=== PATIENT | female | born 1995 | race Caucasian/White ===

== ENCOUNTER 2017-04-08 07:43 | Emergency (ER) | payer OTHER ==
[~2017-04-08] VITALS: Ht 167.6 cm; Wt 56.7 kg
[~2017-04-08 07:43] MED LIST: RITALIN LA40 MG
[2017-04-08 07:57] VITALS: BP 135/90
[2017-04-08 08:36] LABS: URINE BILIRUBIN NEGATIVE (Negative); URINE BLOOD TRACE (Negative); URINE CLARITY SL CLOUDY; URINE COLOR YELLOW; URINE GLUCOSE-RANDOM NEGATIVE (Negative); URINE KETONES NEGATIVE (Negative); URINE LEUKOCYTES-REFLEX 1+ (Negative); URINE NITRITE-REFLEX NEGATIVE (Negative); URINE PROTEIN NEGATIVE (Negative); URINE SPECIFIC GRAVITY <= 1.005 (1.005-1.030); URINE UROBILINOGEN 0.2 E.U./dl (0.2-1.0)
[2017-04-08 08:38] LABS: ABSOLUTE EOSINOPHILS 0.1 thou/uL (0.0-0.7); ABSOLUTE LYMPHOCYTES 1.7 thou/uL (0.8-5.3); ABSOLUTE MONOCYTES 0.7 thou/uL (0.0-1.2); ABSOLUTE NEUTROPHILS 4.5 thou/uL (1.6-8.1); BASOPHILS 0.3 %; EOSINOPHILS 1.2 %; HEMATOCRIT 38.2 % (37.0-47.0); HEMOGLOBIN 13.1 gm/dL (12.0-15.0); LYMPHOCYTES 23.8 %; MCH 29.2 pg (26.0-34.0); MCHC 34.3 g/dL (28.0-37.0); MCV 85.2 fL (80.0-100.0); MONOCYTES 10.1 %; MPV 7.9 fl. (7.2-11.1); NUCLEATED RBCS 0 /100WBC; PLATELET COUNT* 236 thou/uL (150-400); POLYS 64.6 %; RBC 4.49 mil/uL (4.20-5.00); RDW-CV 14.3 % (10.5-14.5); WBC 6.9 thou/uL (4.0-11.0)
[2017-04-08 08:46] LABS: BACTERIA-REFLEX >30 Many /HPF (None Seen); SQUAMOUS >10 Many /LPF (0-3)
[2017-04-08 08:47] LABS: CASTS None Seen /LPF (None Seen); CRYSTALS None Seen /LPF (None Seen); URINE RBC 3-10 Few /HPF (0-2)
[2017-04-08 08:54] LABS: CALCIUM 8.7 mg/dL (8.5-10.1); CREATININE 1.7 mg/dL (0.6-1.3); POTASSIUM 3.7 mmol/L (3.5-5.1)
[2017-04-08 08:58] LABS: ALBUMIN 3.6 g/dL (3.4-5.0); TOTAL BILIRUBIN 0.6 mg/dL (<0.1-1.0); TOTAL PROTEIN 7.3 g/dL (6.4-8.2)
[2017-04-08] MEDS ORDERED: FLAGYL500 MG PO (16:20)
[2017-04-08] MEDS ORDERED: HYDROCODON-ACE1 EAC7 PO (16:20)
[2017-04-08] MEDS ORDERED: ZOFRAN ODT4 MG PO (16:20)
[2017-04-08] MEDS ORDERED: CIPROFLOXACIN500 M1 PO (16:20)
[2017-04-08 16:33] VITALS: BP 115/79
[2017-04-09 10:10] LABS: HEPATITIS B SURFACE AG Negative (Negative)
== END 2017-04-08 16:36 | disposition left against medical advice (07) ==
LOC: M.ERS 07:43 → M.TBA-ER 12:11
PROVIDERS: Personal Emergency Response Attendant
DX: K81.9 Cholecystitis, unspecified (principal); F90.9 Attention-deficit hyperactivity disorder, unspecified type